=== PATIENT | male | born 1980 | race Hispanic/Latino ===

== ENCOUNTER → 2022-05-12 | Outpatient (CLI) | payer OTHER ==
[~2022-05-12] MED LIST: FLOMAX0.4 MG PO; ONDANSETRON ODT4 MG PO; ULTRAM50 MG PO
== END ==
LOC: RAD 11:22
PROVIDERS: ATTEND Urology
DX: N20.0 Calculus of kidney (principal)
CPT/HCPCS: 74018

== ENCOUNTER 2025-06-08 04:36 | Emergency (ER) | payer BC ==
[~2025-06-08] VITALS: Ht 170.2 cm; Wt 95.3 kg
[2025-06-08 04:46] VITALS: TEMP 97.6
[2025-06-08] MEDS: SODIUM CHLORIDE 0.9% 1000ML 1,000 ML IV STA (04:49)
[2025-06-08] MEDS: ONDANSETRON HCL INJ 2MG/ML 2ML 2 MG/ML VIAL IV STA (04:49)
[2025-06-08 04:59] LABS: BASOPHILS % 1.1 % (0.0-1.0); EOSINOPHILS % 3.0 % (0.0-6.0); LYMPHOCYTES % 29.3 % (18.0-39.1); MONOCYTES % 12.4 % (4.4-11.3); NEUTROPHILS % 54.0 % (38.7-80.0); RED CELL DISTRIBUTION WIDTH 12.7 % (11.7-14.4)
[2025-06-08] MEDS: DICYCLOMINE HCL 20 MG/2 ML VIAL IM ONE (05:08)
[2025-06-08 05:18] LABS: EST GLOMERULAR FILTRATION RATE 98.0 ML/MIN (>=60)
[2025-06-08 05:48] LABS: LEUKOCYTE ESTERASE ,URINE NEGATIVE (NEGATIVE); PROTEIN,URINE DIPSTICK TRACE (NEGATIVE); URINE UROBILINOGEN 1 mg/dL (0.2 - 1)
[2025-06-08 05:49] LABS: EPITHELIAL CELLS,URINE FEW /LPF
[2025-06-08] MEDS ORDERED: IOPAMIDOL 370 MG/ML 100 ML INFUS..BTL INJ ONE ×2 (06:09→06:10)
[2025-06-08 06:11] VITALS: PULSE 78; RESP 16
[2025-06-08 06:42] VITALS: BP 119/73; PULSE 69; RESP 17; TEMP 98.4; O2SAT 99
== END 2025-06-08 06:46 | disposition home or self-care (01) ==
LOC: ER 04:38
DX: R10.11 Right upper quadrant pain (principal); R11.2 Nausea with vomiting, unspecified; K76.0 Fatty (change of) liver, not elsewhere classified
CPT/HCPCS: 36415; 74177; 80053; 81001; 83690; 85025; 99284; J0500; J2405; J2470; J7030; Q9967